=== PATIENT | male | born 1975 | race Caucasian/White ===

== ENCOUNTER 2017-02-10 01:22 | Emergency (ER) | payer SELFPAY ==
[~2017-02-10] VITALS: Ht 172.7 cm; Wt 97.5 kg
--- NOTE | 2017-02-10 01:40 | NUR ---
Pt removed c-collar despite being instructed to leave it in place.
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
[2017-02-10] MEDS ORDERED: TDAP DIPH,PERTUSS,TET VAC/PF 0.5 ML DISP.SYRIN IM ONE ×2 (02:00→02:22)
[2017-02-10] MEDS ORDERED: IV NORMAL SALINE 1000 ML BAG IV ONE (02:00)
[2017-02-10] MEDS ORDERED: LORAZEPAM 2 MG/1 ML VIAL IV ONE (02:00)
[2017-02-10] MEDS ORDERED: LORAZEPAM 2 MG/1 ML VIAL ONE (02:22)
[2017-02-10 02:31] LABS: BILIRUBIN,DIRECT 0.3 mg/dL (0.0-0.2); BILIRUBIN,TOTAL 0.9 mg/dL (0.2-1.0); POTASSIUM 3.5 mmol/L (3.5-5.1); TOTAL PROTEIN, SERUM 8.4 g/dL (6.4-8.2)
[2017-02-10 02:44] LABS: BASOPHILS # (AUTO) 0.1 K/uL (0.0-8.0); BASOPHILS % (AUTO) 0.3 % (0.0-2.0); HEMATOCRIT 49.6 % (40-50); HEMOGLOBIN 16.7 G/DL (14.0-18.0); LYMPHOCYTES # (AUTO) 1.4 K/UL (0.8-4.8); LYMPHOCYTES % (AUTO) 5.7 % (20.5-51.5); MEAN CORPUSCULAR HEMOGLOBIN 29.2 UUG (27.0-31.0); MEAN CORPUSCULAR HGB CONC 34 g/dL (32.0-37.0); MEAN CORPUSCULAR VOLUME 86.9 FL (82.0-92.0); MONOCYTES # (AUTO) 2.7 K/UL (0.1-1.30); NEUTROPHILS # (AUTO) 20.7 K/UL (1.8-8.9); PLATELET COUNT (AUTO) 431 K/UL (150-450); RED BLOOD CELL COUNT(AUTO) 5.71 MIL/UL (4.7-6.1); WHITE BLOOD COUNT (AUTO) 24.9 K/UL (4.0-11.2)
--- NOTE | 2017-02-10 03:20 | NUR ---
Pt admitted using meth today, informed.
[2017-02-10 03:43] LABS: CREATININE 1.6 mg/dL (0.6-1.3)
--- NOTE | 2017-02-10 03:50 | NUR ---
there were 2 lacs on the back of pt's head, both cleaned out with saline. stapled both wounds.
--- NOTE | 2017-02-10 04:20 | NUR ---
Patient discharged to home in stable conditon. RX, Written and verbal after care instructions given. Patient verbalized understanding of instructions.
[2017-02-10] MEDS ORDERED: LEVOFLOXACIN 750 MG TABLET PO ONE (04:30)
[2017-02-10] MEDS ORDERED: LEVOFLOXACIN 750 MG TABLET ONE (04:32)
[2017-02-10 05:07] VITALS: BP 125/61
== END 2017-02-10 04:20 | disposition home or self-care (01) ==
LOC: ER 01:23
DX: S01.01XA Laceration without foreign body of scalp, initial encounter (principal); F10.129 Alcohol abuse with intoxication, unspecified; J45.909 Unspecified asthma, uncomplicated; K44.9 Diaphragmatic hernia without obstruction or gangrene; Y08.89XA Assault by other specified means, initial encounter; Y92.89 Other specified places as the place of occurrence of the external cause; Y93.89 Activity, other specified; Y99.8 Other external cause status
CPT/HCPCS: 36415; 70030-TC; 70250; 70450; 71010; 72125; 85025; 90715; 93005; A4217; A4663; G0480; J2060; J7030